=== PATIENT | female | born 1985 | race African-American/Black ===

== ENCOUNTER 2017-09-07 16:31 | Emergency (ER) | payer BC ==
[2017-09-07] MEDS ORDERED: HYDROCODONE/ACETAMINOPHEN 5-325 MG TABLET PO ONE (17:48)
--- NOTE | 2017-09-07 17:49 | ER Document Report ---
ED Medical Screen (RME) - General Chief Complaint: Abdominal Pain Stated Complaint: STOMACH PAIN Time Seen by Provider: 09/07/17 17:47 Notes: Patient was recently seen approximately a month ago for abdominal pain in the [place] town. She states she had a CT scan of the abdomen done which at that time was normal. She states a couple days ago she went to urgent care and was diagnosed with a urinary tract infection. She states those symptoms are getting better but now she has significant right upper quadrant pain with nausea. - Related Data Allergies/Adverse Reactions: No Known Allergies Allergy (Unverified 09/07/17 16:34) Physical Exam - Vital signs Vitals: Temp Pulse Resp BP Pulse Ox 100.6 F H 111 H 16 149/75 H 100 09/07/17 16:41 09/07/17 16:41 09/07/17 16:41 09/07/17 16:41 09/07/17 16:41 Course - Vital Signs Vital signs: Temp Pulse Resp BP Pulse Ox 100.6 F H 111 H 16 149/75 H 100 09/07/17 16:41 09/07/17 16:41 09/07/17 16:41 09/07/17 16:41 09/07/17 16:41
[2017-09-07 18:57] LABS: HEMATOCRIT 33.7 % (36.0-47.0); HEMOGLOBIN 10.8 g/dL (12.0-15.5); MEAN CORPUSCULAR HEMOGLOBIN 25.4 pg (27.0-33.4); MEAN CORPUSCULAR VOLUME 79 fl (80-97); PLATELET COUNT 215 10^3/uL (150-450); RED BLOOD COUNT 4.26 10^6/uL (3.72-5.28); RED CELL DISTRIBUTION WIDTH 13.6 % (11.5-14.0)
[2017-09-07 19:07] LABS: APPEARANCE,URINE CLOUDY; BILIRUBIN,URINE NEGATIVE (NEGATIVE); COLOR,URINE AMBER; GLUCOSE, URINE NEGATIVE (NEGATIVE); KETONES,URINE NEGATIVE (NEGATIVE); LEUKOCYTE ESTERASE,URINE NEGATIVE (NEGATIVE); NITRITE,URINE NEGATIVE (NEGATIVE); PROTEIN,URINE 100 mg/dL (NEGATIVE); URINE SPECIFIC GRAVITY 1.034; UROBILINOGEN,URINE NEGATIVE mg/dL (<2.0)
[2017-09-07 19:12] LABS: ALANINE AMINOTRANSFERASE 24 U/L (9-52); ALBUMIN 4.2 g/dL (3.5-5.0); ALKALINE PHOSPHATASE 57 U/L (38-126); ANION GAP 10 (5-19); ASPARTATE AMINO TRANSFERASE 21 U/L (14-36); BLOOD UREA NITROGEN 10 mg/dL (7-20); CALCIUM 9.1 mg/dL (8.4-10.2); CARBON DIOXIDE 25 mmol/L (22-30); CHLORIDE 105 mmol/L (98-107); GLUCOSE 88 mg/dL (75-110); LIPASE 111.4 U/L (23-300); POTASSIUM 4.2 mmol/L (3.6-5.0); SODIUM 139.7 mmol/L (137-145)
[2017-09-07 19:14] LABS: BILIRUBIN,TOTAL < 0.1 mg/dL (0.2-1.3)
[2017-09-07 19:18] LABS: ABSOLUTE LYMPHOCYTES# (MANUAL) 0.3 10^3/uL (0.5-4.7); ABSOLUTE MONOCYTES # (MANUAL) 0.3 10^3/uL (0.1-1.4); ABSOLUTE NEUTROPHILS# (MANUAL) 1.1 10^3/uL (1.7-8.2); BASOPHILS % (MANUAL) 0 % (0-2); EOSINOPHILS % (MANUAL) 10 % (0-6); LYMPHOCYTES % (MANUAL) 16 % (13-45); MONOCYTES % (MANUAL) 17 % (3-13); SEGMENTED NEUTROPHILS % (MAN) 57 % (42-78); TOTAL CELLS COUNTED 100
[2017-09-07 19:19] LABS: HYPOCHROMASIA SLIGHT; PLATELET COMMENT ADEQUATE; TOXIC GRANULATION SLIGHT
[2017-09-07] MEDS ORDERED: NORMAL SALINE 1000 ML 1,000 ML IV ONE (21:09)
[2017-09-07] MEDS ORDERED: ONDANSETRON HCL INJ/PF 4 MG/2 ML SDV IV ONE (21:10)
[2017-09-07] MEDS ORDERED: KETOROLAC TROMETHAMINE INJ/PF 30 MG/1 ML SDV IV ONE (21:10)
--- NOTE | 2017-09-07 22:19 | RADIOLOGY REPORT (SQ) ---
EXAM DESCRIPTION: U/S ABDOMEN LIMITED W/O DOP COMPLETED DATE/TIME: 09/07/2017 9:01 pm REASON FOR STUDY: ruq pain COMPARISON: None. TECHNIQUE: Dynamic and static grayscale images acquired of the abdomen and recorded on PACS. Additio nal selected color Doppler and spectral images recorded. LIMITATIONS: Overlying bowel gas. FINDINGS: PANCREAS: No masses. Visualized pancreatic duct normal caliber. LIVER: 14.2 cm. Normal echotexture. LIVER VASCULATURE: Normal directional flow of the main portal vein and hepatic veins. GALLBLADDER: No stones. Normal wall thickness. No pericholecystic fluid. ULTRASOUND-DETECTED SHOEMAKER'S SIGN: Negative. INTRAHEPATIC DUCTS AND COMMON DUCT: CBD and intrahepatic ducts normal caliber. No filling defects. INFERIOR VENA CAVA: Normal flow. AORTA: No aneurysm proximally. The mid and distal aorta were not well seen. RIGHT KIDNEY: Normal size, 10.2 cm. Normal echogenicity. No solid or suspicious masses. No hydroneph rosis. No calcifications. PERITONEAL AND RIGHT PLEURAL SPACE: No ascites or effusions. OTHER: No other significant findings. IMPRESSION: NORMAL RIGHT UPPER QUADRANT ULTRASOUND. TECHNICAL DOCUMENTATION: JOB ID: [id number] [employer]- All Rights Reserved Reading location - IP/workstation name: [email or web address]
[2017-09-07] MEDS ORDERED: CEPHALEXIN 500 MG CAPSULE PO ONE (23:25)
--- NOTE | 2017-09-07 23:29 | ER Document Report ---
ED General - General Chief Complaint: Abdominal Pain Stated Complaint: STOMACH PAIN Time Seen by Provider: 09/07/17 17:47 Notes: Patient is a 31-year-old female without chronic medical problems who presents with 1-2 months of daily abdominal pain. Patient reports that for that period of time she has had near daily pain of her upper abdomen that she describes as an aching, cramping, stabbing pain. Nothing seems to improve or worsen the pain. She states that she has been evaluated on several occasions at a different emergency department, a CT scan of her abdomen pelvis at that time which was noted to be normal. She states that she was diagnosed with a kidney infection several days ago, started on trimethoprim sulfamethoxazole states that she does not feel that that has helped. She denies any associated vomiting but does state she becomes nauseated often. No diarrhea and she notes that she has normal bowel movements. She has not had any melena, hematochezia or hematemesis. She reports that she has not had any recorded fevers at home. She has not regularly been following with her primary care doctor regarding these concerns. She denies any chest pain, shortness of breath, headache, neck pain, or altered mental status. - Related Data Allergies/Adverse Reactions: No Known Allergies Allergy (Unverified 09/07/17 16:34) Past Medical History - General Information source: Patient - Social History Smoking Status: Never Smoker Chew tobacco use (# tins/day): No Frequency of alcohol use: None Drug Abuse: None Lives with: Family Family History: Reviewed & Not Pertinent Patient has suicidal ideation: No Patient has homicidal ideation: No Renal/ Medical History: Denies: Hx Peritoneal Dialysis Review of Systems - Review of Systems Notes: Constitutional: Negative for fever. HENT: Negative for sore throat. Eyes: Negative for visual changes. Cardiovascular: Negative for chest pain. Respiratory: Negative for shortness of breath. Gastrointestinal: Positive for abdominal pain and nausea Genitourinary: Positive for dysuria. Musculoskeletal: Negative for back pain. Skin: Negative for rash. Neurological: Negative for headaches, weakness or numbness. 10 point ROS negative except as marked above and in HPI. Physical Exam - Vital signs Vitals: Temp Pulse Resp BP Pulse Ox 100.6 F H 111 H 16 149/75 H 100 09/07/17 16:41 09/07/17 16:41 09/07/17 16:41 09/07/17 16:41 09/07/17 16:41 Interpretation: Tachycardic, Febrile Notes: PHYSICAL EXAMINATION: GENERAL: Well-appearing, well-nourished and in no acute distress. HEAD: Atraumatic, normocephalic. EYES: Pupils equal round and reactive to light, extraocular movements intact, sclera anicteric, conjunctiva are normal. ENT: nares patent, oropharynx clear without exudates. Moderately dry mucous membranes. NECK: Normal range of motion, supple without lymphadenopathy LUNGS: Breath sounds clear to auscultation bilaterally and equal. No wheezes rales or rhonchi. HEART: Regular rate and rhythm without murmurs ABDOMEN: Soft, mild tenderness in the epigastrium otherwise no localized areas of tenderness, normoactive bowel sounds. No guarding, no rebound. No masses appreciated. EXTREMITIES: Normal range of motion, no pitting or edema. No cyanosis. NEUROLOGICAL: No focal neurological deficits. Moves all extremities spontaneously and on command. PSYCH: Normal mood, normal affect. SKIN: Warm, Dry, normal turgor, no rashes or lesions noted. Course - Re-evaluation Re-evalutation: 09/07/17 23:27 Presentation is most consistent with acute pyelonephritis. Laboratories do demonstrate a large amount of white blood cells as well as blood although the patient does note that she is currently on her menstrual cycle. CVA tenderness is present on exam. The remainder laboratories are relatively unremarkable without evidence of renal dysfunction. Mild leukopenia and anemia both of which patient reports are baseline. I do not suspect an acute appendicitis, biliary pathology, pancreatitis, intra-abdominal abscess, or tubo-ovarian abscess based on history and examination. Right upper quadrant ultrasound is normal. Patient states she had a CT in [place] less than a week ago for similar symptoms and it was noted to be normal. I do not believe there is any indication to repeat a CT scan at this time. Patient is able to tolerate oral intake without difficulty. Will be discharged home on 7 day course of cephalexin. A urine culture has been sent. At this time will discharge with return precautions and follow-up recommendations. Verbal discharge instructions given a the bedside and opportunity for questions given. Medication warnings reviewed. Patient is in agreement with this plan and has verbalized understanding of return precautions and the need for primary care follow-up in the next 24-72 hours. - Vital Signs Vital signs: Temp Pulse Resp BP Pulse Ox 98.9 F 75 16 108/64 100 09/07/17 23:31 09/07/17 23:31 09/07/17 23:31 09/07/17 23:31 09/07/17 23:31 - Laboratory Result Diagrams: 09/07/17 18:35 09/07/17 18:35 Laboratory results interpreted by me: 09/07/17 09/07/17 09/07/17 18:35 18:35 18:35 WBC 2.0 L Hgb 10.8 L Hct 33.7 L MCV 79 L MCH 25.4 L Monocytes % (Manual) 17 H Eosinophils % (Manual) 10 H Abs Neuts (Manual) 1.1 L Abs Lymphs (Manual) 0.3 L Total Bilirubin < 0.1 L Urine Protein 100 H Urine Blood LARGE H Urine Ascorbic Acid 40 H - Diagnostic Test Radiology reviewed: Reports reviewed Discharge - Discharge Clinical Impression: Upper abdominal pain, Pyelonephritis, Chronic anemia Condition: Good Disposition: HOME, SELF-CARE Additional Instructions: You have been diagnosed with a condition called pyelonephritis which is an infection involving your kidneys and bladder. You have been given a dose of antibiotics here in the emergency department to help begin to treat this infection. Your also being sent home on antibiotics. Please start taking these later on today when you fill the prescription. Complete the course even if you feel better. Please return if you have persistent vomiting, pass out, have worsening pain, become unable to tolerate fluids, or have any other symptoms that are concerning to you. Please follow-up with your primary care physician in the next 24-48 hours. Prescriptions: Cephalexin Monohydrate [Keflex 500 mg Capsule] 500 mg PO Q6H 7 Days capsule Forms: Return to Work
[2017-09-07 23:38] VITALS: BP 108/64
== END 2017-09-07 23:38 | disposition home or self-care (01) ==
LOC: ER 16:31
DX: N12 Tubulo-interstitial nephritis, not specified as acute or chronic (principal); R10.10 Upper abdominal pain, unspecified; D64.89 Other specified anemias; R30.0 Dysuria; R11.0 Nausea; Z79.899 Other long term (current) drug therapy
CPT/HCPCS: 99284; 96361; 96374; 96375; 36415; 87086; 83690; 85025; 81025; 80053; 81001; 76705; J1885; J2405; J7030